=== PATIENT | male | born 2000 | race Caucasian/White ===

== ENCOUNTER 2021-08-01 23:24 | Emergency (ER) | payer BC, OTHER ==
[~2021-08-01] VITALS: Ht 187 cm; Wt 63.0 kg
[2021-08-02] MEDS ORDERED: KETOROLAC 60 MG/2 ML VIAL IM STA (00:07)
[2021-08-02] MEDS ORDERED: ORPHENADRINE 60 MG/2 ML (NORFLEX) AMP (ED ONLY) IM STA (00:07)
[2021-08-02] MEDS ORDERED: PRD20T PO (00:13)
--- NOTE | 2021-08-02 00:14 | ED Back Pain ---
General Chief Complaint: Back Problems Stated Complaint: LOW BACK PAIN Nursing Triage Note: Patient states severe back pain x 2 days that has kept him from sleeping. Patient advised approximately two years ago the pain began he has since been through physical therapy and was recently dx. with a pars fx. Denies recent injury or injury at the time of initial onset. No difficulty emptying bowel or bladder. Source of Information: Patient Exam Limitations: No Limitations History of Present Illness Date Seen by Provider: Aug 01, 2021 Time Seen by Provider: 23:58 Initial Comments Here with report of low back pain for the last 2 days. This is worsened. 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 Just completed physical therapy and was doing better. States he was coughing and felt some back pain and now it is worsening and he cannot sleep. Denies numbness between his legs, weakness, bowel or bladder incontinence or fever. Centered on the left side mid back to hip but mostly down lower. No radiation of pain down the leg. Location: Lumbar Spine, Paraspinous Muscles Timing/Duration: 1-2 Days Severity: Moderate Pain/Injury Location: Back Radiation: Buttocks Method of Injury: Unknown Modifying Factors: Improves With Immobilization; Worse With Movement Associated Symptoms: muscle spasms; No fever, No weakness, No numbness in legs/feet, No tingling in legs/feet; lower back pain; No loss of bladder control, No loss of bowel control Allergies and Home Medications Allergies Coded Allergies: No Known Drug Allergies (Unverified , 08/01/21) Patient Home Medication List Home Medication List Reviewed: Yes Review of Systems Constitutional: see HPI Respiratory: no symptoms reported Cardiovascular: no symptoms reported Gastrointestinal: see HPI; No abdominal pain Genitourinary: see HPI; No pain Musculoskeletal: see HPI, back pain, muscle pain Psychiatric/Neurological: See HPI Past Rfwkvdu-Dlokia-Htfwkt Hx Patient Social History Tobacco Use?: No Use of E-Cig and/or Vaping dev: No Substance use?: No Alcohol Use?: No Past Medical History Surgery/Hospitalization HX: eye surgery Surgeries: Yes (Eye surgery) Respiratory: No Cardiac: No Neurological: No Genitourinary: No Gastrointestinal: No Musculoskeletal: Yes (Pars defect) Family Medical History Reviewed and Corrections made No Pertinent Family Hx Physical Exam Vital Signs Vital Signs - First Documented Capillary Refill : Less Than 3 Seconds Height, Weight, BMI Height: '" Weight: lbs. oz. kg; 18.00 BMI Method: General Appearance: WD/WN, Mild Distress Cardiovascular: Regular Rate, Rhythm, No Murmur Respiratory: Lungs Clear, Normal Breath Sounds Gastrointestinal: Non Tender, Soft Back: Muscle Spasm (Left lower paraspinous); No Vertebral Tenderness; Other (Negative leg raise bilateral) Extremity: Normal Range of Motion, Non Tender Neurologic/Psychiatric: Alert, Oriented x3 Skin: Normal Color, Warm/Dry Progress/Results/Core Measures Results/Orders My Orders Orders - MICHEAL CARR MD Lortab 5mg Po (08/02/21 00:15) Toradol 60 Mg Im (08/02/21 00:07) Norflex 60 Mg Im (08/02/21 00:07) Vital Signs/I&O 08/01/21 08/01/21 23:36 23:36 Temp 36.4 36.4 Pulse 94 94 Resp 16 16 B/P (MAP) 146/93 (110) 146/93 Pulse Ox 99 94 O2 Delivery Room Air Room Air Blood Pressure Mean: 110 Progress Progress Note : Progress Note Seen and evaluated. This seems to be related to exacerbation of known problem. Toradol 60 mg IM, Norflex 60 mg and hydrocodone 5/325 1 tab p.o. No indication of need for radiological evaluation currently. No red flag signs. Discharged home with return precautions. Patient verbalized understanding instructions and agreement with plan. Departure Impression Primary Impression: Lumbar radiculopathy Disposition: 01 HOME, SELF-CARE Condition: Stable Departure-Patient Inst. Decision time for Depature: 00:12 Referrals: NO,LOCAL PHYSICIAN (PCP/Family) Primary Care Physician Patient Instructions: Radiculopathy, Back Muscle Strain (DC) Add. Discharge Instructions: All discharge instructions reviewed with patient and/or family. Voiced unde rstanding. You may take ibuprofen 600 mg every 8 hours as needed for pain. You may also take Tylenol/acetaminophen 1000 mg every 8 hours as needed for pain. You may use uwip-mlv-kwpmvmy Icy Hot with lidocaine patches, Aspercreme with lidocaine patches, Salonpas with lidocaine patches or similar items to area of concern per package directions. Return for worse pain, fever, numbness between your legs, weakness, difficulty with walking or going to the bathroom or other concerns as needed. Scripts Prednisone (Prednisone) 20 Mg Tab 40 MG PO DAILY, #14 TAB 0 Refills Prov: MICHEAL CARR MD 08/02/21 MICHEAL CARR MD Aug 02, 2021 00:14
[2021-08-02] MEDS ORDERED: HYDROcodone/APAP 5 MG/325 MG (LORTAB) TAB PO ONE (00:15)
[2021-08-02 00:22] VITALS: BP 121/81
== END 2021-08-02 00:34 | disposition home or self-care (01) ==
LOC: ER 23:31
DX: M54.16 Radiculopathy, lumbar region (principal)
CPT/HCPCS: 99284

== ENCOUNTER 2021-09-11 20:17 | Emergency (ER) | payer BC ==
[~2021-09-11] VITALS: Ht 74 cm; Wt 59.0 kg
[~2021-09-11 20:17] MED LIST: PRD20T PO
[2021-09-11] MEDS ORDERED: ORPHENADRINE 60 MG/2 ML (NORFLEX) AMP (ED ONLY) IM ONE (21:30)
[2021-09-11] MEDS ORDERED: KETOROLAC 30 MG/ML VIAL IM ONE (21:30)
--- NOTE | 2021-09-11 21:49 | ED Back Pain ---
General Chief Complaint: Back Problems Stated Complaint: BACK PAIN Source of Information: Patient Exam Limitations: No Limitations History of Present Illness Date Seen by Provider: Sep 11, 2021 Time Seen by Provider: 21:30 Initial Comments Patient is a 21-year-old male with a history of chronic back pain who presents to the emergency room with an acute exacerbation. Patient states that he has been having "flares" of back pain periodically over at least the past year. He is seen multiple doctors for evaluation and work-up of his back pain including having had a CAT scan, left hip x-rays and an MRI of his back. Patient denies any new traumas this evening. He works in a local [email or web address]. Denies any recent heavy lifting or pushing or pulling activities. Patient states that he had taken some Tylenol and did not have any relief of symptoms so he came to the emergency department. He denies any numbness or tingling or weakness in his legs. No loss of bowel or bladder function. States he would be able to void if necessary. Denies any numbness in his groin. States he has been on multiple medications in the past for back pain including prednisone to which she had an adverse reaction. He also had been taking some naproxen and had developed blood in his stool so discontinued this. No recent febrile illnesses. States when he takes a deep breath his back hurts. Is not short of breath. Has had no cough. No fevers. All other review of systems reviewed and negative except as stated. Timing/Duration: 1-3 Hours Severity: Moderate Pain/Injury Location: Back Modifying Factors: Improves With Immobilization Associated Symptoms: muscle spasms, other (mid back pain) Allergies and Home Medications Allergies Coded Allergies: No Known Drug Allergies (Unverified , 08/01/21) Patient Home Medication List Home Medication List Reviewed: Yes Prednisone (Prednisone) 20 Mg Tab, 40 MG PO DAILY Prescribed by: MICHEAL CARR on 08/02/21 0013 Review of Systems Constitutional: see HPI EENTM: no symptoms reported Respiratory: no symptoms reported Cardiovascular: no symptoms reported Gastrointestinal: no symptoms reported Genitourinary: no symptoms reported Musculoskeletal: back pain (mid back pain) Skin: no symptoms reported Psychiatric/Neurological: No Symptoms Reported All Other Systems Reviewed Negative Unless Noted: Yes Past Fjlbudg-Xurvrk-Gkdgeb Hx Patient Social History Tobacco Use?: No Use of E-Cig and/or Vaping dev: No Substance use?: No Alcohol Use?: No Pt feels they are or have been: No Immunizations Up To Date Influenza Vaccine Up-to-Date: No; Not Current COVID19 Vaccine Dredge Or Barge Shore Hand: [place] Past Medical History Surgery/Hospitalization HX: eye surgery Surgeries: Yes (Eye surgery) Respiratory: No Cardiac: No Neurological: No Genitourinary: No Gastrointestinal: No Musculoskeletal: Yes (Pars defect) Family Medical History No Pertinent Family Hx Physical Exam Vital Signs Vital Signs - First Documented 09/11/21 21:15 Temp 36.8 Pulse 91 Resp 18 B/P (MAP) 142/117 (125) Pulse Ox 100 O2 Delivery Room Air Capillary Refill : Less Than 3 Seconds Height, Weight, BMI Height: '" Weight: lbs. oz. kg; 107.00 BMI Method: General Appearance: No Apparent Distress, WD/WN Neck: Normal Inspection Cardiovascular: Regular Rate, Rhythm Respiratory: Lungs Clear, Normal Breath Sounds, No Accessory Muscle Use, No Respiratory Distress Gastrointestinal: Normal Bowel Sounds, Non Tender, Soft Back: Normal Inspection, No Vertebral Tenderness, Other (no reproducible tenderness in the back, points to the area of discomfort at about the T11/12 area of his back; negative straight leg raise bilaterally, normal dorsifelexion of the great toes; iontact motot/sensory function) Extremity: Normal Inspection, Normal Range of Motion, Non Tender, No Calf Tenderness Neurologic/Psychiatric: Alert, Oriented x3, No Motor/Sensory Deficits, Normal Mood/Affect Skin: Normal Color, Warm/Dry Progress/Results/Core Measures Results/Orders My Orders Orders - SOREN SKY MD Orphenadrine Inj (Ed Only) (Norflex Inje (09/11/21 21:30) Ketorolac Injection (Toradol Injection) (09/11/21 21:30) Medications Given in ED Current Medications Medications Dose Ordered Sig/Rivas Route Start Time Stop Time Status Last Admin Dose Admin Ketorolac Tromethamine 30 mg ONCE ONCE IM 09/11/21 21:30 09/11/21 21:31 DC 09/11/21 21:49 30 MG Orphenadrine Citrate 30 mg ONCE ONCE IM 09/11/21 21:30 09/11/21 21:31 DC 09/11/21 21:49 30 MG Vital Signs/I&O 09/11/21 21:15 Temp 36.8 Pulse 91 Resp 18 B/P (MAP) 142/117 (125) Pulse Ox 100 O2 Delivery Room Air Blood Pressure Mean: 125 Departure Impression Primary Impression: Thoracic back pain Qualified Codes: M54.6 - Pain in thoracic spine Disposition: HOME, SELF-CARE Condition: Stable Departure-Patient Inst. Decision time for Depature: 21:47 Referrals: NO,LOCAL PHYSICIAN (PCP/Family) Primary Care Physician Patient Instructions: Upper Back Pain ED Add. Discharge Instructions: Continue Tylenol, 2 extra strength, every 6 hours as needed for pain. Flexeril, 10mg at night for spasm/pain (this medication can make you a little sleepy). Heating pads/ over the counter Lidocaine patches (Salon Pas 4% Lidocaine patch) to the sore areas of your back. Follow up with your provider who has been ordering your scans and imaging. Gentle stretches and activity to help keep your back limber. Return to the Emergency Department for any new, concerning or emergent complaints. Scripts Cyclobenzaprine HCl (Cyclobenzaprine HCl) 10 Mg Tablet 10 MG PO HS PRN for muscle spasm, #10 TAB Prov: SOREN SKY MD 09/11/21 SOREN SKY MD Sep 11, 2021 21:49
[2021-09-11] MEDS ORDERED: CYCL10TA9 PO (21:54)
[2021-09-11 21:57] VITALS: BP 142/117
--- OUTSIDE RECORDS SUMMARY | 2021-09-13 11:45 | XMS REPORT | Encounter Summary ---
Author Author [facility] Organization [facility] Address Unknown Phone Unavailable Care Team Providers Care Conference Assistant Name Role Phone PCP Unavailable Encounter Details Care Team Description Date Type Department Encounter for examination fo r normal comparison or control in clinical research program 08/24/2021 Imaging [facility] Virtual [facility] e Appointment Location Social History Date Tobacco Use Types Packs/Day Years Used Never Smoker Smokeless Tobacco: Never Used Comments Alcohol Use Standard Drinks/Week No 0 (1 standard drink = 0.6 o z pure alcohol) Sex Assigned at Date Recorded Not on file documented as of this encounter Plan of Treatment Not on filedocumented as of this encounter Procedures Comments Procedure Name Priority Date/Time Associated Diag nosis CT OUTSIDE IMAGES FOR Routine 08/24/2021 Encounte r for examination PACS 12:45 PM CDT for normal comparis on or control in clinical research program documented in this encounter Visit Diagnoses Diagnosis Encounter for examination for normal co mparison or control in clinical research program documented in this encounter
--- OUTSIDE RECORDS SUMMARY | 2021-09-13 11:45 | XMS REPORT | Encounter Summary ---
Author Author [facility] Organization [facility] Address Unknown Phone Unavailable Care Team Providers Care Factory Clerk Name Role Phone PCP Unavailable Encounter Details Care Team Description Date Type Department Encounter for examination fo r normal comparison or control in clinical research program 08/24/2021 Imaging [facility] e Appointment Location Social History Date Tobacco [...] Procedure Name Priority Date/Time Associated Diag nosis XR OUTSIDE IMAGES FOR Routine 08/24/2021 Encounte r for examination PACS 12:47 PM CDT for normal comparis on or control in clinical research program documented in this encounter Visit Diagnoses Diagnosis Encounter for examination for normal co mparison or control in clinical research program documented in this encounter
--- OUTSIDE RECORDS SUMMARY | 2021-09-13 11:45 | XMS REPORT | Encounter Summary ---
Author Author [facility] Organization [facility] Address Unknown Phone Unavailable Care Team Providers Care Health Benefits Specialist Name Role Phone PCP Unavailable Reason for Referral * Consultation (Routine) - Closed Diagnoses / Procedures Referred By Contact Referred To Conta ct Specialty Diagnoses Chronic left-sided low back pain without sciatica Left hip pain James Watts MD [address] [place] [address] [facility] [address] [place] [address] Pain Management Referral ID Status Reason Start Date Expiration Visits Vi sits Date Requested Authorized [id number] Closed Specialty Services 08/24/2021 02/21/2022 1 1 Required Reason for Visit * Reason Comments Pain * Rehabilitation - Outpatient (Routine) - Closed Diagnoses / Procedures Referred By Contact Referred To Conta ct Specialty Diagnoses Back pain, unspecified back location, unspecified back pain laterality, [place] [address] [place] [address] [facility] [address] [place] [address] Physical Medicine and Rehabilitation Referral ID Status Reason Start Date Expiration Visits Vi sits Date Requested Authorized [id number] Closed Specialty Services 08/05/2021 02/05/2022 1 1 Required Encounter Details Care Team Description [place] [address] [place] [address] James Watts MD [address] [facility] [address] [place] [address] Chronic left-sided low back pain without sciatica (Primary Dx); Left hip pain 08/24/2021 Initial consult [facility] [address] [place] [address] Social History Date Tobacco Use Types Packs/Day Years Used Never Smoker Smokeless Tobacco: Never Used Comments Alcohol Use Standard Drinks/Week No 0 (1 standard drink = 0.6 o z pure alcohol) Sex Assigned at Date Recorded Not on file documented as of this encounter Last Filed Vital Signs Reading Time Taken Comments Vital Sign - - Blood Pressure - - Pulse 36.8 C (98.3 F) 08/24/2021 12:34 PM CDT Temperature - - Respiratory Rate - - Oxygen Saturation - - Inhaled Oxygen Concentration 62.1 kg (137 lb) 08/24/2021 12:34 PM CDT Weight 188 cm (6' 2") 08/24/2021 12:34 PM CDT Height 17.59 08/24/2021 12:34 PM CDT Body Mass Index documented in this encounter Progress Notes * James Watts MD - 08/24/2021 12:45 PM CDT Images from the original note were not included. Name: Ramiro Terry : 2000 (21 y.o.) Primary Care Provider: No primary care provider on file. Referring Provider: Ishaan Suggs MD Appointment Type: New Patient Date of appointment: 08/24/2021 Chief Complaint Patient presents with Lower Back - Pain History Ramiro Terry is a 21 y.o. male who presents to clinic today as a new patient for management of Low back pain. Patient was seen by Dr. Flores 02/05/21 at which ti me he complained of left buttock pain; symptoms are felt to be more likely relat ed to spine than hip and so is referred to PM&R for evaluation of lumbar pathology contributing to his symptoms. For pain control he is instructed to utilize naproxen and Tylenol. Today patient reports symptoms began approximately 1.5-2 years hip pain with no inciting event; it has progressively worsened to include low back pain. He was seen by external orthopedics earlier this year and was told he had a pars fracture and placed in therapy. Symptoms fluctuate unpredictably; he cannot identify aggravating or alleviating factors. Largely asymptomatic today but will feel unpredictable flares of pain. Currently localizes pain to left buttock wringing to lateral and anterior left hip. Treatments tried and response: Supervised therapy - attempted PT twice; both times experienced aggravation of p ain and so discontinued Medications -Naproxen: could not tolerate due to dizziness -methylprednisolone: could not tolerate due t oGI side effects -Intermittent use of tylenol/ibuprofen with fluctuating benefit Topical agents/ modalities -lidoderm; response: symptoms unchanged Injections - none Surgery - none PFS: Past Medical History: Diagnosis Date Concussion 2012 No current outpatient medications on file. No other pertinent medical history. Past Surgical History: Procedure Laterality Date RETINAL DETACHMENT SURGERY Left 2018 first surgery 2017 No other pertinent surgical history. Family History Problem Relation Age of Onset Asthma Brother Heart disease Maternal Grandfather No other pertinent family history. Social History Tobacco Use Smoking status: Never Smoker Smokeless tobacco: Never Used Substance Use Topics Alcohol use: No Drug use: No Review of Systems Constitutional: Negative for chills and fever. Gastrointestinal: No acute change in bowel function Genitourinary: No acute change in bladder function Neurological: No saddle anesthesia Exam Vitals: 08/24/21 1234 Temp: 36.8 C (98.3 F) TempSrc: Tympanic Weight: 62.1 kg (137 lb) Height: 1.88 m (6' 2") Inspection: Thin, no muscular atrophy in the lower extremities Palpation: no focal tenderness to palpation over Lumbosacral spine, paraspinal m usculature, SI joints, gluteal musculature, trochanteric regions ROM: normal ROM of Lumbar flexion/extension bilateral hip flexion and internal/e xternal rotation Strength: Lower Extremity Right Left Hip Flexion 5 5 Knee Extension 5 5 Ankle Dorsiflexion 5 5 Long Toe Extension 5 5 Ankle Plantarflexion 5 5 Sensation: normal appreciation of light touch in dermatomes of BLE Reflexes: 2+ symmetric patellar, achilles, babinski downgoing, no ankle clonus Special tests: straight leg raise and slump test negative, LORNA /FADIR negative but patient does have brief provocation of pain with moving hips between flexion and extension, facet loading negative, sacral winging positive, gaenslens nega tive, stork test negative, sacral compression negative, Diane's and avery grind n egative Imaging: X-ray of bilateral hips performed 02/05/21 reviewed; unremarkable CT lumbar spine and MRI of lumbar spine reviewed; unremarkable Assessment Ramiro Terry is a 21 y.o. male with left low back and hip pain; symptoms are difficult to reproduce on today's examination; differential includes SI joint pa thology vs L hip pathology vs L iliopsoas bursitis. Spinal source of symptoms is felt to be less likely given findings on examination and imaging. SNOMED CT(R) 1. Chronic left-sided low back pain without sciatica CHRONIC LOW BACK PAIN Amb Referral To Physical Medicine Rehab Amb Referral To Pain Clinic 2. Left hip pain HIP PAIN Amb Referral To Pain Clinic Plan 1. Refer patient for diagnostic/therapeutic injection of left SI joint 2. Continue current medications 3. Follow up after injection to assess response; consider intervention to addres s L hip or bursa if unsuccessful James Watts MD, 1:51 PM 08/24/2021 * This record may include dictation using [employer] software. It may conta in inherent spelling and/or dictation inaccuracies due to this system. Please d o not hesitate to contact our office for clarification or questions regarding th e contents of this document. I spent 45-59 minutes (50 minutes) preparing to see the patient (e.g., review of tests), obtaining and/or reviewing history, performing a medically necessary and appropriate examination, counseling and educating the patient, ordering tests/ procedures, referring and communicating with other health landcare facilitator, do cumenting clinical information in the electronic health record, independently in terpreting results and communicating results to the patient, and care coordinati on. documented in this encounter Plan of Treatment Order Schedule Name Type Priority Associated Diag noses 1 Occurrences starting 08/24/2021 until 02/21/2022 Amb Referral To Pain Outpatient Routine Chronic L eft-Sided Low Clinic Referral Back Pain Without Sciatica Left hip pain documented as of this encounter Visit Diagnoses Diagnosis Chronic left-sided low back pain withou t sciatica - Primary Left hip pain Pain in joint, pelvic region and thigh documented in this encounter
--- OUTSIDE RECORDS SUMMARY | 2021-09-13 11:45 | XMS REPORT | Encounter Summary ---
Author Author [facility] Organization [facility] Address Unknown Phone Unavailable Care Team Providers Care Surgical Sales Representative Name Role Phone PCP Unavailable Reason for Referral * Rehabilitation - Outpatient (Routine) - Closed Diagnoses / Procedures Referred By Contact Referred To Conta ct Specialty Diagnoses Back pain, unspecified back location, unspecified back pain laterality, [place] [address] [place] [address] [facility] [address] [place] [address] Physical Medicine and Rehabilitation Referral ID Status Reason Start Date Expiration Visits Vi sits Date Requested Authorized [id number] Closed Specialty Services 08/05/2021 02/05/2022 1 1 Required Encounter Details Care Team Description Date [place] [address] [place] [address] Back pain, unspecified back location, un specified back pain laterality, unspecified chronicity (Primary Dx) 08/05/2021 [facility] [address] [place], [place] [id number] Social History Date Tobacco Use Types Packs/Day Years Used Never Smoker Smokeless Tobacco: Never Used Comments Alcohol Use Standard Drinks/Week No 0 (1 standard drink = 0.6 o z pure alcohol) Sex Assigned at Date Recorded Not on file documented as of this encounter Plan of Treatment Order Schedule Name Type Priority Associated Diag noses 1 Occurrences starting 08/05/2021 until 02/03/2022 Amb Referral To Physical Outpatient Routine Back Pain, Unspecified Medicine Rehab Referral Back Location, Unspecified Back Pain Laterality, Unspecified Chronicity documented as of this encounter Visit Diagnoses Diagnosis Back pain, unspecified back location, u nspecified back pain laterality, unspecified chronicity - Primary documented in this encounter
--- OUTSIDE RECORDS SUMMARY | 2021-09-13 11:45 | XMS REPORT | Clinical Summary ---
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 Active Problems No known active problems Encounters Care Team Description Date Type Specialty Encounter for examination fo r normal comparison or control in clinical research program 08/24/2021 Imaging Radiology Appointment Encounter for examination fo r normal comparison or control in clinical research program 08/24/2021 Imaging Radiology Appointment Encounter for examination fo r normal comparison or control in clinical research program 08/24/2021 Imaging Radiology Appointment Ishaan Suggs MD Bider, Lucas, MD Chronic left-sided low back pain without sciatica (Primary Dx); Left hip pain 08/24/2021 Initial consult Physical Medicine a nd Rehabilitation Ishaan Suggs MD Back pain, unspecified back location, un specified back pain laterality, unspecified chronicity (Primary Dx) 08/05/2021 Transcribe Orthopedic Surgery Orders from Last 3 Months Immunizations Name Administration Dates Next Due Td 06/09/2020 Family History Medical History Relation Name Comments Asthma Brother Heart disease Maternal Grandfather Relation Name Status Comments Brother Father Alive Maternal Grandfather Mother Alive Social History Date Tobacco Use Types Packs/Day Years Used Never Smoker Smokeless Tobacco: Never Used Comments Alcohol Use Standard Drinks/Week No 0 (1 standard drink = 0.6 o z pure alcohol) Sex Assigned at Date Recorded Not on file Last Filed Vital Signs Reading Time Taken Comments Vital Sign 110/74 08/28/2019 11:01 AM [employer] Blood Pressure 78 06/09/2020 3:49 PM CDT Pulse 36.8 C (98.3 F) 08/24/2021 12:34 PM CDT Temperature 18 07/30/2015 12:23 AM CDT Respiratory Rate 99% 08/28/2019 11:01 AM [facility] Oxygen Saturation - - Inhaled Oxygen Concentration 62.1 kg (137 lb) 08/24/2021 12:34 PM CDT Weight 188 cm (6' 2") 08/24/2021 12:34 PM CDT Height 17.59 08/24/2021 12:34 PM CDT Body Mass Index Plan of Treatment Health Maintenance Due Date Last Done Comments HPV Vaccine (1 - Male 2010 2-dose series) Influenza Vaccine (#1) 2021 Td/Tdap# 06/09/2030 06/09/2020 COVID-19 Vaccine Completed 01/30/2021, 01/09/2021 MCV4 Vaccine Aged Out No longer eligible based on patient's age to complete this topic Pneumococcal Vaccine: Aged Out No longer eligib le based on patient's age to Pediatrics (0 to 5 Years) complete this topic and At-Risk Patients (6 to 64 Years) Procedures Comments Procedure Name Priority Date/Time Associated Diag nosis XR OUTSIDE IMAGES FOR Routine 08/24/2021 Encounte r for examination PACS 12:47 PM CDT for normal comparis on or control in clinical research program CT OUTSIDE IMAGES FOR Routine 08/24/2021 Encounte r for examination PACS 12:45 PM CDT for normal comparis on or control in clinical research program MRI OUTSIDE IMAGES FOR Routine 08/24/2021 Encount er for examination PACS 12:45 PM CDT for normal comparis on or control in clinical research program from Last 3 Months Results * XR Outside images for PACS (08/24/2021 12:47 PM CDT) Specimen Performing Organization Address City/State/ZIP Code P ry Number [place] * CT Outside images for PACS (08/24/2021 12:45 PM CDT) Specimen Performing Organization Address City/State/ZIP Code P ry Number [place] * MRI Outside images for PACS (08/24/2021 12:45 PM CDT) Specimen Performing Organization Address City/State/ZIP Code P ry Number [place] from Last 3 Months Insurance Type Payer Benefit Subscriber ID Effective Phone Address Plan / Dates Group [facility] [id number] 2008-P [id number] [place] [address] [address] [employer] [place] (Home) [place] [address] Ramiro Terry Personal/F Self [phone] [employer] [place] (Home) [place] [facility] [place] [address] Ramiro Terry Personal/F Self 2000 [address] [employer] [place] (Home) [place] [facility] [place] [address] Advance Directives For more information, please contact: [phone] 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
--- OUTSIDE RECORDS SUMMARY | 2021-09-13 11:45 | XMS REPORT | Encounter Summary ---
Author Author [facility] Organization [facility] Address Unknown Phone Unavailable Care Team Providers Care Plating Equipment Tender Name Role Phone PCP Unavailable Encounter Details Care Team Description Date Type Department Encounter for examination fo r normal comparison or control in clinical research program 08/24/2021 Imaging [facility] Virtual [facility] e Appointment Location Social History Date Tobacco [...] Procedure Name Priority Date/Time Associated Diag nosis MRI OUTSIDE IMAGES FOR Routine 08/24/2021 Encount er for examination PACS 12:45 PM CDT for normal comparis on or control in clinical research program documented in this encounter Visit Diagnoses Diagnosis Encounter for examination for normal co mparison or control in clinical research program documented in this encounter
== END 2021-09-11 22:07 | disposition home or self-care (01) ==
LOC: EDUNIT# 21:07 → ER 21:08
DX: M54.6 Pain in thoracic spine (principal)
CPT/HCPCS: 99284